=== PATIENT | male | born 1950 | race Caucasian/White ===

== ENCOUNTER 2017-11-23 09:02 | Day surgery (SDC) | payer MEDICARE, BC ==
[~2017-11-23 09:02] MED LIST: Bupivacaine 0.75%/D5W 2 ML Amp ONE; Gentamicin 40 MG/ML 2 ML Vial ONE; Midazolam 1 MG/ML 2 ML SDV ONE; Povidone-Iodine 10% Soln 118.25 ML Bottle ONE; Propofol 200 MG/20 ML SDV ONE; fentaNYL 100 MCG/2 ML SDV ONE
[2017-11-23] MEDS ORDERED: Acetaminophen 500 MG Tab PO ONE (09:15)
[2017-11-23] MEDS ORDERED: Lactated Ringers 1,000 ML IV SCH ×2 (09:15→14:15)
[2017-11-23] MEDS ORDERED: Scopolamine 1.5 MG Transdermal Patch TOP SCH (09:15)
[2017-11-23] MEDS ORDERED: ceFAZolin 2 GM in Premix Bag 1 BAG IV ONE (09:30)
[2017-11-23] MEDS ORDERED: Ketamine 500 MG/5 ML MDV IV SCH (10:45)
[2017-11-23] MEDS ORDERED: Ropivacaine 49.25 ML, Ketorolac 30 MG, EPINEPHrine 0.5 MG, cloNIDine 80 MCG, Sodium Chl... INJECT ONE ×5 (10:45)
[2017-11-23] MEDS ORDERED: Bupivacaine 0.75%/D5W 2 ML Amp ONE (10:57)
[2017-11-23] MEDS: TRANEXAMIC ACID IV SCH ×2 (11:15→14:29)
[2017-11-23] MEDS: SODIUM CHLORIDE 0.9% IV SCH ×2 (11:15→14:29)
[2017-11-23] MEDS ORDERED: fentaNYL 250 MCG/5 ML SDV ONE (11:47)
[2017-11-23] MEDS ORDERED: Dexamethasone 4 MG/ML SDV ONE (12:03)
[2017-11-23] MEDS ORDERED: Ondansetron 4 MG/2 ML SDV ONE (12:03)
[2017-11-23] MEDS ORDERED: Lactated Ringers 1,000 ML ONE (12:24)
[2017-11-23] MEDS ORDERED: Vancomycin 1 GM SDV ONE (12:53)
[2017-11-23] MEDS ORDERED: Morphine 2 MG/ML Syringe IVPUSH PRN (14:04)
[2017-11-23] MEDS ORDERED: Aluminum Hydroxide/Magnesium Hydroxide/Simethicone Susp 30 ML Cup PO PRN (14:04)
[2017-11-23] MEDS ORDERED: traMADol 50 MG Tab PO PRN (14:04)
[2017-11-23] MEDS ORDERED: Sennosides 8.6 MG Tab PO PRN (14:04)
[2017-11-23] MEDS ORDERED: Docusate Sodium 100 MG Cap PO PRN (14:04)
[2017-11-23] MEDS ORDERED: Ondansetron 4 MG/2 ML SDV IVPUSH PRN (14:04)
[2017-11-23] MEDS ORDERED: Ketorolac 30 MG/ML SDV IVPUSH PRN (14:04)
[2017-11-23] MEDS ORDERED: diphenhydrAMINE 50 MG/ML SDV IVPUSH PRN (14:04)
[2017-11-23] MEDS ORDERED: Naloxone 0.4 MG/ML SDV IVPUSH PRN (14:04)
[2017-11-23] MEDS ORDERED: Magnesium Hydroxide 400 MG/5 ML Susp 30 ML Cup PO PRN (14:04)
[2017-11-23] MEDS ORDERED: Zolpidem 5 MG Tab PO PRN (14:04)
[2017-11-23] MEDS ORDERED: Bisacodyl 5 MG Tab PO PRN (14:04)
[2017-11-23] MEDS ORDERED: fentaNYL 100 MCG/2 ML SDV ONE (14:08)
[2017-11-23] MEDS ORDERED: hydrOXYzine HCl 100 MG/2 ML SDV IM ONE (14:30)
--- NOTE | 2017-11-23 14:45 | CR ---
Knee 1V or 2V Lt CLINICAL HISTORY: Postop FINDINGS: Patient is status post total knee arthroplasty. Components appear well seated. There is int erstitial synovial and subcutaneous air. Impression: Status post recent 3 component total knee arthroplasty
[2017-11-23] MEDS ORDERED: fentaNYL 100 MCG/2 ML SDV IVPUSH ONE (14:49)
--- NOTE | 2017-11-23 15:47 | OR ---
DATE OF PROCEDURE: 11/23/2017 PREOPERATIVE DIAGNOSIS: Left knee primary osteoarthritis. POSTOPERATIVE DIAGNOSIS: Left knee primary osteoarthritis. PROCEDURE: Left knee total knee arthroplasty. ANESTHESIA: General endotracheal intubation. FLUIDS: Lactated Ringer's solution. ESTIMATED BLOOD LOSS: 10 mL. COMPLICATIONS: None. SPECIMEN: None. DISCHARGE DISPOSITION: Stable to PACU. INSTRUMENTATION: DePuy femur size 7, tibia size 7, size 7 10-mm polyethylene insert, and 41- mm domed polyethylene patella. INDICATION FOR PROCEDURE: The patient was seen preoperatively in the clinic. He had failed nonoperative treatment. Preoperative imaging confirmed the above-mentioned diagnosis. Risks and benefits of the procedure were explained to the patient and informed consent was obtained. DETAILS OF PROCEDURE: The patient was seen preoperatively in the preoperative holding area, where the operative site was marked. He was brought to the operative suite by Anesthesia staff, where spinal was administered, but did not take; therefore, general anesthesia was administered. A well-padded tourniquet was placed on the left thigh. The left lower extremity was then prepped and draped in a sterile manner. Time-out was called identifying the correct patient, the correct procedure, the correct site, and that antibiotics had been begun within the appropriate period of time. We started this case as a medial unicompartmental arthroplasty, so his right lower extremity was in a stirrup and the left was in a U-brace with a pad. The left lower extremity was exsanguinated. Tourniquet was raised to 300 mmHg and taken down at 113 minutes. I did start off performing a medial arthroplasty, which failed. This was done through a medial parapatellar incision and then a medial parapatellar arthrotomy. We went through the entire procedure, which I am not going to go through at this point in time, but right before we were ready to cement the plateau, just under, the intercondylar notch cracked. Therefore, it was converted to a total. I will detail that procedure in full. The patella was everted. Two free-hand cuts were made on the patella. Three holes were drilled for the 41 patella trial. After the patella trial was inserted, I then reamed the distal femur and then inserted a cutting guide. This was a 9-mm distal cut, but I did set it to 8 because of the prior unicondylar cut and then pinned this in place and then made the cut. I then removed that guide and then used a posterior condylar guide because there was a resection of the posteromedial condyle due to the unicompartmental arthroplasty. I did carefully evaluate the epicondylar axis, pinned this in place, which measured a 7. I used the pins for my 7 chamfer block and made my anterior, posterior, chamfer cuts. After this had been performed, I then focused on my tibial cut. I then used an extramedullary tibial guide from my tibial cut, making this just slightly below the level of my previous medial tibial cut. After that had been performed, I anteriorized the tibia and protected medial and lateral collaterals during the procedure with the Z- retractor and a sharp Hohmann. I then applied my 7 tibial baseplate, then reamed and tamped this, and then placed my femoral trial, followed by tibial insert. I had to recap my tibia because there was not enough space and then I inserted a size 7 10-mm tibial trial. This provided excellent stability throughout range of motion. We then removed all of our components. We then copiously irrigated with saline and then cemented our components in place with the knee in extension, with a size 7 10-mm trial. After the cement had dried, we then removed our tibial trial and then copiously irrigated with saline. I took care of any extra bleeders. No lateral tibial osteophytes or femoral osteophytes were seen posteriorly. I removed any extra cement. I then irrigated again and applied some Betadine into the wound because of the tourniquet time, and then I irrigated again and placed some vancomycin powder, and then inserted my final tibial insert, which was size 7 10-mm. This provided excellent range of motion and stability. We then closed with two #5 Ethibond interrupted sutures at the inferior and superior pole of the patella followed by #1 STRATAFIX, followed by #2 STRATAFIX, followed by skin ashley, and followed by sterile dressing. Then, the patient was allowed to awaken from general anesthesia and taken to the PACU in a stable condition. Abebe Nassar DO /[id number]
[2017-11-23] MEDS: Acetaminophen/oxyCODONE 325-5 MG Tab PO PRN ×3 (16:12→23:50)
[2017-11-23] MEDS: ceFAZolin 2 GM in Sodium Chloride 0.9% 50 ML IV SCH (18:12)
[2017-11-24] MEDS: ceFAZolin 2 GM in Sodium Chloride 0.9% 50 ML IV SCH ×2 (01:08→10:17)
[2017-11-24] MEDS: Acetaminophen/oxyCODONE 325-5 MG Tab PO PRN ×2 (04:20→07:59)
[2017-11-24 08:05] VITALS: BP 125/92
[2017-11-24] MEDS ORDERED: Sodium Chloride 0.9% 10 ML Syringe FLUSH SCH (09:00)
[2017-11-24] MEDS ORDERED: Aspirin 325 MG Tab.EC PO SCH (09:00)
--- NOTE | 2017-11-24 09:02 | PCM.DCSUM1 ---
Discharge Summary - Hospital Course Diagnosis: Stroke: No - Discharge Data Discharge Date: 11/24/17 Discharge Disposition: Home, Self-Care 01 Condition: Good - Patient Summary/Data Operative Procedure(s) Performed: r tka Complications: none Consults: Consultations 11/23/17 14:04 OT Evaluation and Treatment [CONS] Routine Please Evaluate and Treat. OT Reason for Consult: Strengthening This query below is only for informational purposes and is not editable. PT Evaluation and Treatment [CONS] Routine Please Evaluate and Treat. PT Reason for Consult: Strengthening This query below is only for informational purposes and is not editable. Respiratory Care Assess and Treatment [CONS] Routine Comment: Physician Instructions: Post-op Pneumonia Prevention - Patient Instructions Diet: Usual Diet as Tolerated Activity: Apply Ice, As Tolerated, Full Weight Bearing, No Strenuous Activities Driving: Do Not Drive Showering/Bathing: May Shower Wound/Incision Care: Keep Operative Site/Wound Site Clean and Dry Wound/Incision, Other: change aquacell , then daily dressing changes Notify Provider of: Fever, Increased Pain, Swelling and Redness, Drainage - Discharge Plan *PRESCRIPTION DRUG MONITORING PROGRAM REVIEWED*: No *COPY OF PRESCRIPTION DRUG MONITORING REPORT IN PATIENT JUSTICE: No Prescriptions/Med Rec: Acetaminophen/oxyCODONE [Percocet 325-5 MG] 1 tab PO Q6HR #90 tablet Home Medications: Home Meds Aspirin 325 mg PO DAILY 06/22/16 [History] Fexofenadine [Evelyn] 180 mg PO DAILY 06/22/16 [History] Metoprolol Succinate [Toprol XL] 50 mg PO DAILY 06/22/16 [History] atorvaSTATin [Lipitor] 40 mg PO DAILY 06/22/16 [History] Vitamin B Complex [B Complex] 1 each PO DAILY 06/25/16 [History] Acetaminophen/oxyCODONE [Percocet 325-5 MG] 1 tab PO Q6HR #90 tablet 11/24/17 [ Rx] Patient Handouts: Total Knee Replacement, Care After, [id number] Referrals: Abebe Nassar DO [Physician] - - General Info Date of Service: 11/24/17 Functional Status: Reports: Pain Controlled - Review of Systems General: Reports: No Symptoms HEENT: Reports: No Symptoms Pulmonary: Reports: No Symptoms Cardiovascular: Reports: No Symptoms Gastrointestinal: Reports: No Symptoms Genitourinary: Reports: No Symptoms Musculoskeletal: Reports: Joint Pain Skin: Reports: No Symptoms Neurological: Reports: No Symptoms Psychiatric: Reports: No Symptoms - Patient Data Vitals - Most Recent: Last Vital Signs Temp 97.9 F 11/24/17 08:04 Pulse 82 11/24/17 08:04 Resp 16 11/24/17 08:04 BP 125/92 H 11/24/17 08:04 Pulse Ox 93 L 11/24/17 08:04 Weight - Most Recent: 184 lb I&O - Last 24 hours: Intake & Output 11/23/17 11/24/17 11/24/17 22:59 06:59 14:59 Intake Total 815 1873 Output Total 800 1450 Balance 15 423 Lab Results - Last 24 hrs: Laboratory Results - last 24 hr 11/23/17 11/24/17 11/24/17 Range/Units 09:20 05:00 05:00 WBC 12.6 H (4.5-11.0) K/uL RBC 4.24 L (4.30-5.90) M/uL Hgb 12.8 (12.0-15.0) g/dL Hct 38.9 L (40.0-54.0) % MCV 92 (80-98) fL MCH 30 (27-31) pg MCHC 33 (32-36) % Plt Count 165 (150-400) K/uL Neut % (Auto) 81 H (36-66) % Lymph % (Auto) 9 L (24-44) % [place] % (Auto) 11 H (2-6) % Eos % (Auto) 0 L (2-4) % Baso % (Auto) 0 (0-1) % Sodium 137 L (140-148) mmol/L Potassium 4.1 (3.6-5.2) mmol/L Chloride 106 (100-108) mmol/L Carbon Dioxide 26 (21-32) mmol/L Anion Gap 9.1 (5.0-14.0) mmol/L BUN 17 (7-18) mg/dL Creatinine 1.3 (0.8-1.3) mg/dL Est Cr Clr Drug Dosing 55.90 mL/min Estimated GFR (MDRD) 55 L (>60) Glucose 146 H (74-106) mg/dL Calcium 8.1 L (8.5-10.1) mg/dL Total Bilirubin 0.4 (0.2-1.0) mg/dL ALT 34 (12-78) U/L Alkaline Phosphatase 81 (46-116) U/L Total Protein 5.4 L (6.4-8.2) g/dL Albumin 2.7 L (3.4-5.0) g/dL Globulin 2.7 (2.3-3.5) g/dL Albumin/Globulin Ratio 1.0 L (1.2-2.2) Blood Type A POSITIVE Gel Antibody Screen Negative Med Orders - Current: Current Medications Al Hydroxide/Mg Hydroxide (Mag-Al Plus) 30 ml PO Q4H PRN PRN Reason: Constipation Aspirin (Ecotrin) 325 mg PO DAILY [facility] Last Admin: 11/24/17 07:59 Dose: 325 mg Bisacodyl (Dulcolax) 10 mg PO DAILY PRN PRN Reason: Constipation Diphenhydramine HCl (Benadryl) 25 mg IVPUSH Q4H PRN PRN Reason: Itching Docusate Sodium (Colace) 100 mg PO BID PRN PRN Reason: Constipation Ketamine HCl 100 mg/ Sodium (Chloride) 100 mls @ 21 mls/hr IV ASDIRECTED [facility] Cefazolin Sodium 2 gm/ Sodium (Chloride) 50 mls @ 100 mls/hr IV Q8H [facility] Stop: 11/24/17 10:29 Last Admin: 11/24/17 01:08 Dose: 100 mls/hr Lactated Ringer's (Ringers, Lactated) 1,000 mls @ 100 mls/hr IV ASDIRECTED [facility] Last Admin: 11/24/17 02:30 Dose: 100 mls/hr Ketorolac Tromethamine (Toradol) 30 mg IVPUSH Q8H PRN PRN Reason: Pain Magnesium Hydroxide (Milk Of Magnesia) 30 ml PO BID PRN PRN Reason: Constipation Morphine Sulfate (Morphine) 2 mg IVPUSH Q2H PRN PRN Reason: Pain Naloxone HCl (Narcan) 0.1 mg IVPUSH ASDIRECTED PRN PRN Reason: Oversedation Ondansetron HCl (Zofran) 8 mg IVPUSH Q4H PRN PRN Reason: Nausea/Vomiting Oxycodone/Acetaminophen (Percocet 325-5 Mg) 2 tab PO Q4H PRN PRN Reason: Pain Last Admin: 11/24/17 07:59 Dose: 2 tab Scopolamine (Transderm-Scop) 1.5 mg TOP Q72H [facility] Stop: 11/25/17 09:16 Last Admin: 11/23/17 09:25 Dose: 1.5 mg Senna (Senna) 8.6 mg PO BID PRN PRN Reason: Constipation Sodium Chloride (Saline Flush) 10 ml FLUSH DAILY [facility] Tramadol HCl (Ultram) 100 mg PO Q6H PRN PRN Reason: Pain Zolpidem Tartrate (Ambien) 5 mg PO BEDTIME PRN PRN Reason: Sleep Discontinued Medications Acetaminophen (Tylenol Extra Strength) 1,000 mg PO ONETIME ONE Stop: 11/23/17 09:16 Last Admin: 11/23/17 09:23 Dose: 1,000 mg Bupivacaine HCl/Dextrose (Marcaine 0.75% Spinal) Confirm Administered Dose 2 ml .ROUTE .STK-MED ONE Stop: 11/23/17 08:22 Bupivacaine HCl/Dextrose (Marcaine 0.75% Spinal) Confirm Administered Dose 2 ml .ROUTE .STK-MED ONE Stop: 11/23/17 10:58 Ropivacaine 49.25 ml/Ketorolac Tromethamine 30 mg/Epinephrine HCl 0.5 mg/ Clonidine HCl 80 mcg/ Sodium Chloride 48.45 ml 0 ml INJECT ONETIME ONE Stop: 11/23/17 10:46 Last Admin: 11/23/17 12:15 Dose: 100 ml Dexamethasone (Dexamethasone) Confirm Administered Dose 4 mg .ROUTE .STK-MED ONE Stop: 11/23/17 12:04 Fentanyl (Sublimaze) Confirm Administered Dose 100 mcg .ROUTE .STK-MED ONE Stop: 11/23/17 08:10 Fentanyl (Sublimaze) Confirm Administered Dose 250 mcg .ROUTE .STK-MED ONE Stop: 11/23/17 11:48 Fentanyl (Sublimaze) Confirm Administered Dose 100 mcg .ROUTE .STK-MED ONE Stop: 11/23/17 14:09 Fentanyl (Sublimaze) 100 mcg IVPUSH ONETIME ONE Stop: 11/23/17 14:50 Last Admin: 11/23/17 14:53 Dose: 100 mcg Gentamicin Sulfate (Gentamicin) Confirm Administered Dose 240 mg .ROUTE .STK- MED ONE Stop: 11/23/17 07:04 Last Admin: 11/23/17 11:56 Dose: 240 mg Hydroxyzine HCl (Vistaril) 75 mg IM ONETIME ONE Stop: 11/23/17 14:31 Last Admin: 11/23/17 14:37 Dose: 75 mg Cefazolin Sodium/Dextrose 2 gm (/ Premix) 50 mls @ 100 mls/hr IV ONETIME ONE Stop: 11/23/17 09:59 Last Admin: 11/23/17 11:15 Dose: 100 mls/hr Lactated Ringer's (Ringers, Lactated) 1,000 mls @ 100 mls/hr IV ASDIRECTED [facility] Last Admin: 11/23/17 09:58 Dose: 100 mls/hr Tranexamic Acid 940 mg/ Sodium (Chloride) 59.4 mls @ 237.6 mls/hr IV Q3H [facility] Stop: 11/23/17 13:59 Last Admin: 11/23/17 14:29 Dose: 237.6 mls/hr Lactated Ringer's (Ringers, Lactated) Confirm Administered Dose 1,000 mls @ as directed .ROUTE .STK-MED ONE Stop: 11/23/17 12:25 Ketamine HCl (Ketalar) 35 mg IV ASDIRECTED [facility] Midazolam HCl (Versed 1 Mg/Ml) Confirm Administered Dose 2 mg .ROUTE .STK-MED ONE Stop: 11/23/17 08:10 Ondansetron HCl (Zofran) Confirm Administered Dose 4 mg .ROUTE .STK-MED ONE Stop: 11/23/17 12:04 Povidone Iodine (Betadine 10% Soln) Confirm Administered Dose 1 ml .ROUTE .STK- MED ONE Stop: 11/23/17 07:04 Last Admin: 11/23/17 11:57 Dose: 1 ml Propofol (Diprivan 20 Ml) Confirm Administered Dose 200 mg .ROUTE .STK-MED ONE Stop: 11/23/17 08:11 Vancomycin HCl (Vancomycin) Confirm Administered Dose 1 gm .ROUTE .STK-MED ONE Stop: 11/23/17 12:54 Last Admin: 11/23/17 13:45 Dose: 1 gm - Exam General: Reports: Alert, Oriented HEENT: Reports: Pupils Equal, Pupils Reactive, Mucous Membr. Moist/[place] Neck: Reports: Supple, Trachea Midline Lungs: Reports: Normal Respiratory Effort Cardiovascular: Reports: Regular Rate, Regular Rhythm Extremities: Joint Swelling, Limited Range of Motion Skin: Reports: Warm, Dry, Intact Wound/Incisions: Reports: Healing Well, Dressing Dry and Intact, No Drainage Neurological: Reports: No New Focal Deficit Psy/Mental Status: Reports: Alert, Normal Affect, Normal Mood Discharge Operative/Procedures - Procedures Performed Operations: r tka
== END 2017-11-24 10:57 | disposition home or self-care (01) ==
LOC: JP.SDS 09:02 → JP.MS 14:04 → JP.SDS 11-24 10:57
PROVIDERS: ATTEND Orthopaedic Surgery
DX: M17.12 Unilateral primary osteoarthritis, left knee (principal); I10 Essential (primary) hypertension; I25.10 Atherosclerotic heart disease of native coronary artery without angina pectoris; E78.5 Hyperlipidemia, unspecified; Z79.82 Long term (current) use of aspirin; Z79.899 Other long term (current) drug therapy
CPT/HCPCS: 27447; 36415; 73560; 80053; 85025; 86850; 86900; 86901; 94762; 97162; 97165; A9270; J0171; J0690; J0735; J1100; J1580; J1885; J2250; J2405; J2704; J2795; J3010; J3370; J3410; J7030; J7050; J7120

== ENCOUNTER 2017-11-25 11:16 | Observation (INO) | payer BC, MEDICARE ==
[2017-11-25] MEDS ORDERED: Polyethylene Glycol 3350 Powder 17 GM Packet PO PRN (11:44)
[2017-11-25] MEDS ORDERED: Magnesium Hydroxide 400 MG/5 ML Susp 30 ML Cup PO PRN (11:44)
[2017-11-25] MEDS ORDERED: Ondansetron 4 MG Tab.DIS PO PRN (11:44)
--- NOTE | 2017-11-25 11:53 | PCM.HP ---
H&P History of Present Illness - General Date of Service: 11/25/17 Admit Problem/Dx: Admission Diagnosis/Problem Admission Diagnosis/Problem Edema of left lower extremity Source of Information: Patient, Family, Old Records, Provider, RN Notes Reviewed History Limitations: Reports: No Limitations - History of Present Illness Initial Comments - Free Text/Narative: Mr. Mcfarland is a 66-year-old gentleman who is admitted as a direct admission from physical therapy with increased swelling and pain in his left knee. He underwent total left knee arthroplasty 2 days [address] performed by Dr[address] Salvador Nassar. He did very well first 24 hours after surgery and was discharged home yesterday. As the day progressed he had increased swelling and pain in the knee and leg. He presented this morning for physical therapy but because of swelling and pain was unable to participate. He does not feel that he would be safe to function at home at this point and will be admitted to observation status. There have been no fevers, chills, or sweats. He does have a past history of deep vein thrombosis associated with previous surgery of his left ankle. - Related Data Allergies/Adverse Reactions: Allergies Allergy/AdvReac Type Severity Reaction Status Date / Time No Known Allergies Allergy Verified 06/25/16 07:15 Home Medications: Home Meds Aspirin 325 mg PO DAILY 06/22/16 [History] Fexofenadine [Evelyn] 180 mg PO DAILY 06/22/16 [History] Metoprolol Succinate [Toprol XL] 50 mg PO DAILY 06/22/16 [History] atorvaSTATin [Lipitor] 40 mg PO DAILY 06/22/16 [History] Vitamin B Complex [B Complex] 1 each PO DAILY 06/25/16 [History] Acetaminophen/oxyCODONE [Percocet 325-5 MG] 1 tab PO Q6HR #90 tablet 11/24/17 [ Rx] Past Medical History HEENT History: Reports: Impaired Vision Cardiovascular History: Reports: High Cholesterol, Hypertension, [place] Gastrointestinal History: Reports: Colon Polyp Musculoskeletal History: Reports: Other (See Below) Other Musculoskeletal History: right elbow pain. left knee pain - Infectious Disease History Infectious Disease History: Reports: Chicken Pox, Measles, Mumps - Past Surgical History HEENT Surgical History: Reports: None Cardiovascular Surgical History: Reports: Coronary Artery Stent GI Surgical History: Reports: Colonoscopy, Hernia, Inguinal Musculoskeletal Surgical History: Reports: Knee Replacement, Other (See Below) Other Musculoskeletal Surgeries/Procedures:: arthroscope right elbow Social & Family History - Family History Family Medical History: Noncontributory - Caffeine Use Caffeine Use: Reports: None H&P Review of Systems - Review of Systems: Review Of Systems: See Below General: Denies: Fever, Chills, Weakness, Diaphoresis, Decreased Appetite HEENT: Reports: No Symptoms Pulmonary: Reports: No Symptoms Cardiovascular: Reports: No Symptoms Gastrointestinal: Reports: No Symptoms Genitourinary: Reports: No Symptoms Musculoskeletal: Reports: Other (Pain and swelling left knee and leg) Skin: Reports: No Symptoms Psychiatric: Reports: No Symptoms Neurological: Reports: No Symptoms Hematologic/Lymphatic: Reports: No Symptoms Immunologic: Reports: No Symptoms Exam - Exam Exam: See Below - Vital Signs Vital Signs: Last Vital Signs Temp 99.1 F 11/25/17 11:27 Pulse 77 11/25/17 11:27 Resp 18 11/25/17 11:27 BP 149/79 H 11/25/17 11:27 Pulse Ox 96 11/25/17 11:27 - Exam Quality Assessment: DVT Prophylaxis General: Alert, Oriented, Cooperative, Moderate Distress HEENT: Conjunctiva Clear, Hearing Intact, Mucosa Moist & [place], Normal Nasal Septum, Posterior Pharynx Clear, Pupils Equal Neck: Supple, Trachea Midline, +2 Carotid Pulse wo Bruit Lungs: Clear to Auscultation, Normal Respiratory Effort Cardiovascular: Regular Rate, Regular Rhythm, Normal S1, Normal S2. No: Systolic Murmur, Diastolic Murmur GI/Abdominal Exam: Soft, Non-Tender, No Organomegaly, No Distention Extremities: Leg Pain, Increased Warmth, Other (Pain and swelling left leg, incision is intact with no evidence of active infection at the present time) Skin: Warm, Dry Neurological: Cranial Nerves Intact, Strength Equal Bilateral, Normal Speech, Normal Tone, Sensation Intact, Focal Deficit Neuro Extensive - Mental Status: Alert, Oriented x3, Normal Mood/Affect, Normal Cognition, Memory Intact *Q Meaningful Use (ADM) - VTE *Q VTE Pharmacological Contraindications *Q: Active Hemorrhage - VTE Risk Assess *Q Each Risk Factor Represents 1 Point: None Total Score 1 Point Risk Factors: 0 Each Risk Factor Represents 2 Points: Age 60 - 74 Years Total Score 2 Point Risk Factors: 2 Each Risk Factor Represents 3 Points: History of DVT/PE Total Score 3 Point Risk Factors: 3 Each Risk Factor Represents 5 Points: Elective Major Lower Extremity Arthroplasty Total Score 5 Point Risk Factors: 5 Venous Thromboembolism Risk Factor Score *Q: 10 Problem List Initiated/Reviewed/Updated: Yes Orders Last 24hrs: Active Orders 24 hr Category Date Time Status Patient Status [ADT] Routine ADT 11/25/17 11:44 Ordered Rayo Bandage [RC] CONTINUOUS Care 11/25/17 11:25 Active Ambulate [RC] QID Care 11/25/17 11:44 Ordered Communication Order [RC] ASDIRECTED Care 11/25/17 11:27 Active Elevate Extremity [RC] CONTINUOUS Care 11/25/17 11:25 Active Height and Weight [RC] DAILY Care 11/25/17 11:44 Ordered Intake and Output [RC] QSHIFT Care 11/25/17 11:44 Ordered Notify Provider Vital Signs [RC] ASDIRECTED Care 11/25/17 11:44 Ordered Oxygen Therapy [RC] PRN Care 11/25/17 11:44 Ordered Up With Assistance [RC] ASDIRECTED Care 11/25/17 11:44 Ordered Up to Chair [RC] QID Care 11/25/17 11:44 Ordered VTE/DVT Education [RC] Per Unit Routine Care 11/25/17 11:44 Ordered Vital Signs [RC] Q4H Care 11/25/17 11:44 Ordered Regular Diet [DIET] Diet 11/25/17 Lunch Ordered Extremity Non Vascular Lt [US] Stat Exams 11/25/17 11:44 Ordered VL Duplex Lwr Ext Veins Ltd Lt [US] Stat Exams 11/25/17 11:44 Ordered CBC WITH AUTO DIFF [HEME] Stat Lab 11/25/17 11:44 Ordered COMPREHENSIVE METABOLIC PN,CMP [CHEM] Stat Lab 11/25/17 11:44 Ordered Acetaminophen [Tylenol] Med 11/25/17 11:44 Ordered 650 mg PO Q4H PRN Docusate Sodium/Sennosides [Senna Plus] Med 11/25/17 11:44 Ordered 1 tab PO BID PRN Fexofenadine [Evelyn] Med 11/26/17 09:00 Ordered 180 mg PO DAILY Magnesium Hydroxide [Milk of Magnesia] Med 11/25/17 11:44 Ordered 30 ml PO Q12H PRN Metoprolol Succinate [Toprol XL] Med 11/26/17 09:00 Ordered 50 mg PO DAILY Ondansetron [Zofran ODT] Med 11/25/17 11:44 Ordered 4 mg PO Q6H PRN Polyethylene Glycol 3350 [MiraLAX] Med 11/25/17 11:44 Ordered 17 gm PO DAILY PRN atorvaSTATin [Lipitor] Med 11/26/17 09:00 Ordered 40 mg PO DAILY oxyCODONE Med 11/25/17 11:44 Ordered 5 - 10 mg PO Q4H PRN Ice Therapy [OM.PC] Routine Oth 11/25/17 11:27 Ordered VTE Pharmacological Contraindications [AST] Per Unit Oth 11/25/17 11:44 Ordered Routine Resuscitation Status Routine Resus Stat 11/25/17 11:38 Ordered Medication Orders Acetaminophen (Tylenol) 650 mg PO Q4H PRN PRN Reason: Pain (Mild 1-3)/fever Non-Formulary Medication (Atorvastatin [Lipitor]) 40 mg PO DAILY [facility] Non-Formulary Medication (Fexofenadine [Evelyn]) 180 mg PO DAILY [facility] Senna/Docusate Sodium (Senna Plus) 1 tab PO BID PRN PRN Reason: Constipation Assessment/Plan Comment:: ASSESSMENT AND PLAN PAIN AND SWELLING LEFT KNEE-history of total left knee arthroplasty done [address] Salvador Nassar. Discharged home yesterday but over the last 24 hours his developed significant pain and swelling about the left knee. Previous history of deep vein thrombosis involving the left leg. No obvious evidence of infection noted this time, possibility with increased pain and swelling is secondary to bleeding. -Laboratory tests pending -Compression, ice, and elevation, left leg -Pain medication as needed -Physical therapy in a.m. -Ultrasound left knee to look for evidence of hematoma -Venous Doppler studies left leg to evaluate for deep vein thrombosis CORONARY ARTERY DISEASE-currently asymptomatic -Continue outpatient management MAINTENANCE ISSUES -DVT prophylaxis;Hold on anticoagulation, possible hematoma left knee -GI prophylaxis;Not indicated -Beckett catheter;Not indicated -Nutrition;Regular diet -Nicotine dependence;Not required CODE STATUS-FULL CODE ADMISSION STATUS-this patient will be admitted to observation status, expect no more than a one night hospital stay for evaluation and management of problems as outlined above. DISPOSITION-anticipate discharge to home after the hospital stay. PRIMARY CARE PROVIDER-Dr. Batista
[2017-11-25] MEDS: oxyCODONE 5 MG Tab PO PRN ×3 (12:21→22:20)
--- NOTE | 2017-11-25 13:11 | US ---
VL Duplex Lwr Ext Veins Ltd Lt INDICATION: New swelling left leg FINDINGS: Ultrasound examination of the lower extremity using Doppler and compressive technique demon strates that the common femoral, femoral, and popliteal veins are patent, and negative for thrombus. The calf veins were segmentally visualized and are negative where seen. IMPRESSION: Negative for deep venous thrombosis.
[2017-11-25] MEDS: Acetaminophen 325 MG Tab PO PRN (17:22)
[2017-11-26] MEDS: oxyCODONE 5 MG Tab PO PRN ×2 (02:56→07:31)
[2017-11-26] MEDS: Loratadine 10 MG Tab PO SCH (08:47)
[2017-11-26] MEDS: Metoprolol Succinate 50 MG Tab.ER PO SCH (08:48)
[2017-11-26] MEDS: atorvaSTATin 20 MG Tab PO SCH (08:48)
[2017-11-26] MEDS ORDERED: Non-Formulary Medication 1 Each (Fexofenadine [Allegra] 180 MG) PO SCH (09:00)
[2017-11-26] MEDS ORDERED: Non-Formulary Medication 1 Each (Atorvastatin [Lipitor] 40 MG) PO SCH (09:00)
--- NOTE | 2017-11-26 11:57 | PCM.PN ---
- General Info Date of Service: 11/26/17 Subjective Update: Mr. Mcfarland has been stable since admission, less swelling and stiffness of the left knee. He did have mild temperature elevation but this was likely secondary to atelectasis, no current indication of infection in the prosthetic joint. Functional Status: Reports: Tolerating Diet, Ambulating, Urinating - Review of Systems General: Denies: Fever, Weakness, Chills Pulmonary: Reports: No Symptoms Cardiovascular: Reports: No Symptoms Gastrointestinal: Reports: No Symptoms Musculoskeletal: Reports: Joint Pain - Patient Data Vitals - Most Recent: Last Vital Signs Temp 98.7 F 11/26/17 10:27 Pulse 73 11/26/17 10:27 Resp 18 11/26/17 10:27 BP 133/83 11/26/17 10:27 Pulse Ox 92 L 11/26/17 10:27 Weight - Most Recent: 191 lb 12.8 oz I&O - Last 24 Hours: Intake & Output 11/25/17 11/26/17 11/26/17 22:59 06:59 14:59 Intake Total 720 Balance 720 Lab Results Last 24 Hours: Laboratory Results - last 24 hr 11/25/17 11/25/17 Range/Units 11:55 11:55 WBC 10.6 (4.5-11.0) K/uL RBC 4.21 L (4.30-5.90) M/uL Hgb 12.8 (12.0-15.0) g/dL Hct 38.6 L (40.0-54.0) % MCV 92 (80-98) fL MCH 30 (27-31) pg MCHC 33 (32-36) % Plt Count 160 (150-400) K/uL Neut % (Auto) 75 H (36-66) % Lymph % (Auto) 10 L (24-44) % [place] % (Auto) 14 H (2-6) % Eos % (Auto) 1 L (2-4) % Baso % (Auto) 0 (0-1) % Sodium 139 L (140-148) mmol/L Potassium 4.0 (3.6-5.2) mmol/L Chloride 101 (100-108) mmol/L Carbon Dioxide 30 (21-32) mmol/L Anion Gap 12.0 (5.0-14.0) mmol/L BUN 14 (7-18) mg/dL Creatinine 1.1 (0.8-1.3) mg/dL Est Cr Clr Drug Dosing 66.06 mL/min Estimated GFR (MDRD) > 60 (>60) Glucose 110 H (74-106) mg/dL Calcium 8.5 (8.5-10.1) mg/dL Total Bilirubin 0.7 D (0.2-1.0) mg/dL AST 34 (15-37) U/L ALT 30 (12-78) U/L Alkaline Phosphatase 83 (46-116) U/L Total Protein 6.1 L (6.4-8.2) g/dL Albumin 2.9 L (3.4-5.0) g/dL Globulin 3.2 (2.3-3.5) g/dL Albumin/Globulin Ratio 0.9 L (1.2-2.2) Med Orders - Current: Current Medications Acetaminophen (Tylenol) 650 mg PO Q4H PRN PRN Reason: Pain (Mild 1-3)/fever Last Admin: 11/25/17 17:22 Dose: 650 mg Atorvastatin Calcium (Lipitor) 40 mg PO DAILY [facility] Last Admin: 11/26/17 08:48 Dose: Not Given Loratadine (Claritin) 10 mg PO DAILY [facility] Last Admin: 11/26/17 08:47 Dose: Not Given Magnesium Hydroxide (Milk Of Magnesia) 30 ml PO Q12H PRN PRN Reason: Constipation Last Admin: 11/26/17 04:46 Dose: 30 ml Metoprolol Succinate (Toprol Xl) 50 mg PO DAILY [facility] Last Admin: 11/26/17 08:48 Dose: Not Given Ondansetron HCl (Zofran Odt) 4 mg PO Q6H PRN PRN Reason: Nausea able to take PO Oxycodone HCl (Oxycodone) 5 - 10 mg PO Q4H PRN PRN Reason: Pain (moderate 4-6) Last Admin: 11/26/17 07:31 Dose: 10 mg Polyethylene Glycol (Miralax) 17 gm PO DAILY PRN PRN Reason: Constipation Last Admin: 11/25/17 12:27 Dose: 17 gm Senna/Docusate Sodium (Senna Plus) 1 tab PO BID PRN PRN Reason: Constipation Last Admin: 11/26/17 04:46 Dose: 1 tab - Exam General: Alert, Oriented, Cooperative, Mild Distress Lungs: Clear to Auscultation, Normal Respiratory Effort Cardiovascular: Regular Rate, Regular Rhythm GI/Abdominal Exam: Soft, Non-Tender, No Organomegaly, No Distention Extremities: Joint Swelling Skin: Warm, Dry - Problem List Review Problem List Initiated/Reviewed/Updated: Yes - My Orders Last 24 Hours: My Active Orders 11/25/17 11:38 Resuscitation Status Routine 11/25/17 11:44 Patient Status [ADT] Routine Ambulate [RC] QID Height and Weight [RC] DAILY Intake and Output [RC] QSHIFT Notify Provider Vital Signs [RC] ASDIRECTED Oxygen Therapy [RC] PRN Up With Assistance [RC] ASDIRECTED Up to Chair [RC] QID VTE/DVT Education [RC] Per Unit Routine Vital Signs [RC] Q4H Acetaminophen [Tylenol] 650 mg PO Q4H PRN Docusate Sodium/Sennosides [Senna Plus] 1 tab PO BID PRN Magnesium Hydroxide [Milk of Magnesia] 30 ml PO Q12H PRN Ondansetron [Zofran ODT] 4 mg PO Q6H PRN Polyethylene Glycol 3350 [MiraLAX] 17 gm PO DAILY PRN oxyCODONE 5 - 10 mg PO Q4H PRN VTE Pharmacological Contraindications [AST] Per Unit Routine 11/25/17 Lunch Regular Diet [DIET] 11/26/17 09:00 Loratadine [Claritin] 10 mg PO DAILY Metoprolol Succinate [Toprol XL] 50 mg PO DAILY atorvaSTATin [Lipitor] 40 mg PO DAILY 11/26/17 11:23 Consult to Physical Therapy [PT Evaluation and Treatment] [CONS] Routine - Plan Plan:: ASSESSMENT AND PLAN PAIN AND SWELLING LEFT KNEE-history of total left knee arthroplasty done [address] Salvador Nassar. Stable since admission with only slight temperature elevation likely secondary to atelectasis. Ultrasound obtained yesterday showed no evidence of hematoma or deep vein thrombosis. -Compression, ice, and elevation, left leg -Pain medication as needed -Physical therapy CORONARY ARTERY DISEASE-currently asymptomatic -Continue outpatient management MAINTENANCE ISSUES -DVT prophylaxis;Hold on anticoagulation, possible hematoma left knee -GI prophylaxis;Not indicated -Beckett catheter;Not indicated -Nutrition;Regular diet -Nicotine dependence;Not required CODE STATUS-FULL CODE ADMISSION STATUS-this patient will be admitted to observation status, expect no more than a one night hospital stay for evaluation and management of problems as outlined above. DISPOSITION-anticipate discharge to home tomorrow PRIMARY CARE PROVIDER-Dr. Batista
[2017-11-26] MEDS ORDERED: Bisacodyl 10 MG Supp RECTAL PRN (17:37)
[2017-11-26] MEDS: Acetaminophen 325 MG Tab PO PRN (19:25)
[2017-11-27] MEDS: Acetaminophen 325 MG Tab PO PRN ×2 (01:24→07:32)
[2017-11-27 06:46] VITALS: BP 146/77
[2017-11-27] MEDS: Loratadine 10 MG Tab PO SCH (10:22)
[2017-11-27] MEDS: Metoprolol Succinate 50 MG Tab.ER PO SCH (10:23)
[2017-11-27] MEDS: atorvaSTATin 20 MG Tab PO SCH (10:23)
--- NOTE | 2017-11-27 10:23 | PCM.DCSUM1 ---
Discharge Summary - Hospital Course Brief History: Mr. Mcfarland is a 66-year-old gentleman who was admitted to observation status for further evaluation and management of swelling and pain in his left knee following recent total left knee arthroplasty. - Discharge Data Discharge Date: 11/27/17 Discharge Disposition: Home, Self-Care 01 Condition: Fair - Discharge Diagnosis/Problem(s) (1) Status post left knee surgery SNOMED Code(s): 654740004 ICD Code: Z98.890 - OTHER SPECIFIED POSTPROCEDURAL STATES Status: Acute Current Visit: No Problem Details: Particial replacement (2) CAD (coronary artery disease) SNOMED Code(s): 63437984 ICD Code: I25.10 - ATHSCL HEART DISEASE OF [place] CORONARY ARTERY W/O ANG PCTRS Status: Chronic Current Visit: No - Patient Summary/Data Consults: Consultations 11/26/17 11:23 Consult to Physical Therapy [PT Evaluation and Treatment] [CONS] Routine Please Evaluate and Treat. PT Reason for Consult: Status post left total knee arthroplasty This query below is only for informational purposes and is not editable. Admission Diagnosis/Problem: Edema of left lower extremity Hospital Course: Mr. Mcfarland is a 66-year-old gentleman who was admitted as a direct admission from physical therapy with increased swelling and pain in his left knee. He underwent total left knee arthroplasty 2 days prior to admission, performed by Dr. Salvador Nassar. He did very well first 24 hours after surgery and was discharged home on the day prior to admission. As the day progressed he had increased swelling and pain in the knee and leg. He presented this morning for physical therapy but because of swelling and pain was unable to participate. He does not feel that he would be safe to function at home at this point and will be admitted to observation status. There have been no fevers, chills, or sweats. He does have a past history of deep vein thrombosis associated with previous surgery of his left ankle. On admission the leg was kept elevated with regular ice and compression wrapping. Ultrasound was obtained which showed no evidence of significant fluid collection or hematoma. There was no evidence of deep vein thrombosis noted in the left leg with ultrasound. He was continued on pain medication and was seen by physical therapy on the morning after admission. The time of discharge he was walking with use of crutches and there was significant improvement in the swelling about the left knee. On the day of discharge the incision was intact with no obvious drainage or evidence of underlying infection. Activity will be as tolerated and he will continue outpatient physical therapy. Follow-up appointment will be scheduled for tomorrow with Dr. Salvador Nassar for orthopedic evaluation. He will return immediately if he notes any increased swelling or drainage from the knee. - Patient Instructions Diet: Usual Diet as Tolerated Activity: As Tolerated Other/Special Instructions: Continue outpatient physical therapy as previously scheduled. See Dr. Salvador Nassar tomorrow for orthopedic follow-up of total left knee arthroplasty. Keep the leg elevated while sitting or lying down, ice frequently, compression wraps as tolerated. - Discharge Plan *PRESCRIPTION DRUG MONITORING PROGRAM REVIEWED*: Not Applicable *COPY OF PRESCRIPTION DRUG MONITORING REPORT IN PATIENT JUSTICE: Not Applicable Home Medications: Home Meds Aspirin 325 mg PO DAILY 06/22/16 [History] Fexofenadine [Evelyn] 180 mg PO DAILY 06/22/16 [History] Metoprolol Succinate [Toprol XL] 50 mg PO DAILY 06/22/16 [History] atorvaSTATin [Lipitor] 40 mg PO DAILY 06/22/16 [History] Vitamin B Complex [B Complex] 1 each PO DAILY 06/25/16 [History] Acetaminophen/oxyCODONE [Percocet 325-5 MG] 1 tab PO Q6HR #90 tablet 11/24/17 [ Rx] - Discharge Summary/Plan Comment DC Time >30 min.: No - Patient Data Vitals - Most Recent: Last Vital Signs Temp 97.8 F 11/27/17 06:44 Pulse 75 11/27/17 06:44 Resp 18 11/27/17 06:44 BP 146/77 H 11/27/17 06:44 Pulse Ox 93 L 11/27/17 06:44 Weight - Most Recent: 189 lb 9.6 oz I&O - Last 24 hours: Intake & Output 11/26/17 11/27/17 11/27/17 22:59 06:59 14:59 Intake Total 400 Balance 400 Med Orders - Current: Current Medications Acetaminophen (Tylenol) 650 mg PO Q4H PRN PRN Reason: Pain (Mild 1-3)/fever Last Admin: 11/27/17 07:32 Dose: 650 mg Atorvastatin Calcium (Lipitor) 40 mg PO DAILY [facility] Last Admin: 11/26/17 08:48 Dose: Not Given Bisacodyl (Dulcolax) 10 mg RECTAL BID PRN PRN Reason: Constipation Last Admin: 11/26/17 18:42 Dose: 10 mg Loratadine (Claritin) 10 mg PO DAILY [facility] Last Admin: 11/26/17 08:47 Dose: Not Given Magnesium Hydroxide (Milk Of Magnesia) 30 ml PO Q12H PRN PRN Reason: Constipation Last Admin: 11/26/17 04:46 Dose: 30 ml Metoprolol Succinate (Toprol Xl) 50 mg PO DAILY [facility] Last Admin: 11/26/17 08:48 Dose: Not Given Ondansetron HCl (Zofran Odt) 4 mg PO Q6H PRN PRN Reason: Nausea able to take PO Oxycodone HCl (Oxycodone) 5 - 10 mg PO Q4H PRN PRN Reason: Pain (moderate 4-6) Last Admin: 11/26/17 07:31 Dose: 10 mg Polyethylene Glycol (Miralax) 17 gm PO DAILY PRN PRN Reason: Constipation Last Admin: 11/25/17 12:27 Dose: 17 gm Senna/Docusate Sodium (Senna Plus) 1 tab PO BID PRN PRN Reason: Constipation Last Admin: 11/26/17 04:46 Dose: 1 tab - Exam General: Reports: Alert, Oriented, Cooperative, Mild Distress Lungs: Reports: Clear to Auscultation, Normal Respiratory Effort Cardiovascular: Reports: Regular Rate, Regular Rhythm, No Murmurs GI/Abdominal Exam: Soft, Non-Tender, No Organomegaly, No Distention Extremities: Other (Swelling left leg and around the left knee, incision is intact with no evidence of underlying infection or drainage) *Q Meaningful Use (DIS) - VTE *Q VTE Pharmacological Contraindications *Q: Active Hemorrhage
== END 2017-11-27 11:45 | disposition home or self-care (01) ==
LOC: JP.MS 11:16
PROVIDERS: ADMIT Hospitalist; ATTEND Hospitalist
DX: M25.562 Pain in left knee (principal); R22.42 Localized swelling, mass and lump, left lower limb; I25.10 Atherosclerotic heart disease of native coronary artery without angina pectoris; I25.2 Old myocardial infarction; I10 Essential (primary) hypertension; E78.00 Pure hypercholesterolemia, unspecified; Z79.82 Long term (current) use of aspirin; Z79.899 Other long term (current) drug therapy; Z96.652 Presence of left artificial knee joint
CPT/HCPCS: 36415; 80053; 85025; 93971; 97110; 97164; 97530; 97535; A9270; G0378; 99217; 99218; 99224

== ENCOUNTER 2019-10-25 06:39 | Day surgery (SDC) | payer BC, MEDICARE ==
[2019-10-25 06:58] VITALS: PULSE 61
[2019-10-25] MEDS ORDERED: Sodium Chloride 0.9% 1,000 ML IV SCH (07:00)
[2019-10-25] MEDS ORDERED: fentaNYL 100 MCG/2 ML SDV ONE (07:27)
[2019-10-25] MEDS ORDERED: Midazolam 1 MG/ML 2 ML SDV ONE (07:27)
[2019-10-25] MEDS ORDERED: Propofol 200 MG/20 ML SDV ONE (07:27)
[2019-10-25 08:56] VITALS: BP 124/92
--- NOTE | 2019-10-25 12:21 | OR ---
DATE OF PROCEDURE: 10/25/2019 SURGEON: Tiburcio Abraham MD PROCEDURE: Colonoscopy. FINDINGS: Approximately 1 cm polyp found in transverse colon, completely removed with hot snare wire device. COMPLICATION: None CONVERTIBLE TOP INSTALLER: None. PREOPERATIVE DIAGNOSIS: History of colon polyps. POSTOPERATIVE DIAGNOSIS: History of colon polyps. RISKS: Risks, benefits, alternatives, and limitations including, but not limited to infection, bleeding, and perforation were explained to the patient, who wished to proceed. PROCEDURE IN DETAIL: The patient was placed in left lateral decubitus position. Digital rectal exam was performed, which showed mild external hemorrhoids. Scope was introduced and advanced atraumatically to the ileocecal valve. A photo was taken of this. Scope was brought back through the ascending, transverse, descending colon, and retroflexed. The aforementioned polyp was identified and completely removed by surrounding with a wire. No abnormal bleeding was noted after removal. No abnormalities on retroflexion. The patient did have one diverticulum. The patient tolerated the procedure well. Tiburcio Abraham MD /[id number]
== END 2019-10-25 09:15 | disposition home or self-care (01) ==
LOC: JP.SDS 06:39
PROVIDERS: ATTEND Surgery
DX: Z12.11 Encounter for screening for malignant neoplasm of colon (principal); D12.3 Benign neoplasm of transverse colon; K64.4 Residual hemorrhoidal skin tags; I10 Essential (primary) hypertension; E78.5 Hyperlipidemia, unspecified; Z86.010 Personal history of colon polyps
CPT/HCPCS: 45385; J2250; J2704; J3010; J7030

== ENCOUNTER 2024-09-04 18:37 | Observation (INO) | payer MEDICARE ==
[2024-09-04] MEDS: Ondansetron 4 MG/2 ML SDV IVPUSH ONE (18:55)
[2024-09-04 18:56] LABS: BASOPHILS ABSOLUTE AUTO 0.03 K/uL (0.00-0.10); BASOPHILS PERCENT AUTO 0.4 % (0.1-1.3); EOSINOPHILS PERCENT AUTO 4.3 % (0.0-5.4); HEMATOCRIT 43.9 % (38.4-49.7); HEMOGLOBIN 14.7 g/dL (12.9-16.9); IMMATURE GRAN ABSOLUTE AUTO 0.03 K/uL (0.00-0.23); IMMATURE GRAN PERCENT AUTO 0.4 % (0.0-0.7); LYMPHOCYTES ABSOLUTE AUTO 1.44 K/uL (0.8-3.3); LYMPHOCYTES PERCENT AUTO 20.7 % (11.4-47.7); MEAN CORPUSCULAR HEMOGLOBIN 31.2 pg (31.6-35.5); MEAN CORPUSCULAR HGB CONC 33.5 g/dL (31.6-35.5); MEAN CORPUSCULAR VOLUME 93.2 fL (81.4-99.0); MONOCYTES ABSOLUTE AUTO 0.53 K/uL (0.20-0.90); MONOCYTES PERCENT AUTO 7.6 % (3.3-12.6); NEUTROPHILS ABSOLUTE AUTO 4.64 K/uL (1.0-7.6); NEUTROPHILS PERCENT AUTO 66.6 % (40.0-78.1); PLATELET COUNT,PLT 164 K/uL (130-375); RED BLOOD CELL COUNT 4.71 M/uL (4.14-5.76)
[2024-09-04] MEDS: Morphine 4 MG/ML Syringe IVPUSH ONE ×2 (18:56→19:17)
[2024-09-04] MEDS: Midazolam 1 MG/ML 2 ML SDV IVPUSH ONE ×2 (19:07→19:26)
[2024-09-04 19:11] LABS: ANION GAP 15.1 mmol/L (5.0-14.0); BLOOD UREA NITROGEN,BUN 19 mg/dL (7-18); CALCIUM 9.6 mg/dL (8.5-10.1); CARBON DIOXIDE,CO2 26 mmol/L (21-32); CHLORIDE,CL 102 mmol/L (100-108); CREATININE 1.2 mg/dL (0.8-1.3); ESTIMATED GFR 64 mL/min (>60); GLUCOSE RANDOM 142 mg/dL (74-106); POTASSIUM,K 4.1 mmol/L (3.6-5.2); SODIUM,NA 139 mmol/L (140-148)
[2024-09-04] MEDS ORDERED: Glycopyrrolate 0.2 MG/ML 5 ML MDV ONE (20:18)
[2024-09-04] MEDS ORDERED: Rocuronium 50 MG/5 ML Vial ONE ×2 (20:18→21:46)
[2024-09-04] MEDS ORDERED: Dexamethasone 4 MG/ML SDV ONE (20:18)
[2024-09-04] MEDS ORDERED: Neostigmine Methylsulfate 10 MG/10 ML MDV ONE (20:18)
[2024-09-04] MEDS ORDERED: Ondansetron 4 MG/2 ML SDV ONE (20:18)
[2024-09-04] MEDS ORDERED: fentaNYL 250 MCG/5 ML SDV ONE (20:18)
[2024-09-04] MEDS ORDERED: Succinylcholine 200 MG/10 ML MDV ONE (20:18)
[2024-09-04] MEDS ORDERED: Propofol 200 MG/20 ML SDV ONE (20:18)
[2024-09-04] MEDS ORDERED: Lactated Ringers 1,000 ML ONE (20:49)
[2024-09-04] MEDS ORDERED: ceFAZolin 1 GM Vial ONE (21:01)
[2024-09-04] MEDS ORDERED: Sodium Chloride 0.9% 10 ML ONE ×2 (21:01→21:47)
[2024-09-04] MEDS ORDERED: Ketorolac 30 MG/ML SDV ONE (21:13)
[2024-09-04] MEDS: Bupivacaine 0.5%/EPINEPHrine 1:200,000 50 ML MDV ONE (21:55)
[2024-09-04] MEDS: Indocyanine Green 25 MG SDV ONE (22:00)
[2024-09-04] MEDS ORDERED: fentaNYL 50 MCG/ML SDV IVPUSH PRN (23:35)
[2024-09-04] MEDS ORDERED: Ondansetron 4 MG/2 ML SDV IVPUSH PRN (23:41)
[2024-09-05] MEDS ORDERED: Promethazine 12.5 MG in Sodium Chloride 0.9% 50 ML IV PRN (00:15)
[2024-09-05] MEDS: Acetaminophen/HYDROcodone 325-5 MG Tab PO PRN (00:18)
[2024-09-05] MEDS ORDERED: Promethazine 25 MG in Sodium Chloride 0.9% 50 ML IV PRN (00:18)
[2024-09-05] MEDS ORDERED: Scopalamine 1mg/3day Transdermal Patch TOP PRN (00:19)
[2024-09-05] MEDS ORDERED: Dexamethasone 4 MG/ML SDV IVPUSH PRN (00:24)
[2024-09-05 05:38] VITALS: BP 126/62; PULSE 74
== END 2024-09-05 08:52 | disposition home or self-care (01) ==
LOC: JP.ED 18:37 → JP.SDS 19:46 → JP.MS 23:10
PROVIDERS: ADMIT Registered Nurse; ATTEND Surgery
DX: K40.31 Unilateral inguinal hernia, with obstruction, without gangrene, recurrent (principal); I10 Essential (primary) hypertension; E78.00 Pure hypercholesterolemia, unspecified; Z79.82 Long term (current) use of aspirin; Z79.899 Other long term (current) drug therapy
CPT/HCPCS: 36415; 49651; 51702; 80048; 83605; 85025; 93005; 96374; 96375; 99284; A9270; C1781; J0171; J0330; J0690; J1100; J1596; J1885; J2250; J2270; J2405; J2704; J2710; J2795; J3010; J3490; J7120

== ENCOUNTER 2024-09-06 04:11 | Inpatient (IN) | payer MEDICARE ==
[2024-09-06] MEDS: Sodium Chloride 0.9% 1,000 ML IV ONE (04:50)
[2024-09-06] MEDS: Ketorolac 15 MG/ML SDV ONE (04:55)
[2024-09-06] MEDS: Ketorolac 15 MG/ML SDV IVPUSH ONE (04:55)
[2024-09-06] MEDS: Ondansetron 4 MG/2 ML SDV IVPUSH ONE (05:01)
[2024-09-06] MEDS: Morphine 4 MG/ML Syringe IVPUSH ONE (07:42)
[2024-09-06] MEDS ORDERED: Succinylcholine 200 MG/10 ML MDV ONE (08:26)
[2024-09-06] MEDS ORDERED: fentaNYL 250 MCG/5 ML SDV ONE (08:26)
[2024-09-06] MEDS ORDERED: Ondansetron 4 MG/2 ML SDV ONE (08:26)
[2024-09-06] MEDS ORDERED: Dexamethasone 4 MG/ML SDV ONE (08:26)
[2024-09-06] MEDS ORDERED: Glycopyrrolate 0.2 MG/ML 5 ML MDV ONE (08:26)
[2024-09-06] MEDS ORDERED: Rocuronium 50 MG/5 ML Vial ONE ×2 (08:26→08:27)
[2024-09-06] MEDS ORDERED: Neostigmine Methylsulfate 10 MG/10 ML MDV ONE (08:26)
[2024-09-06] MEDS ORDERED: Propofol 200 MG/20 ML SDV ONE (08:26)
[2024-09-06] MEDS: Iopamidol 612 MG/ML 100 ML Bottle IV PRN (08:31)
[2024-09-06] MEDS: Sodium Chloride 0.9% 80 ML IV SCH (08:32)
[2024-09-06 09:37] LABS: A/G RATIO 1.1 (1.2-2.2); ALANINE AMINOTRANSFERASE,ALT 30 U/L (12-78); ALBUMIN 3.7 g/dL (3.4-5.0); ALKALINE PHOSPHATASE 90 U/L (46-116); ANION GAP 9.3 mmol/L (5.0-14.0); ASPARTATE AMNIOTRANSFERASE,AST 20 U/L (15-37); BILIRUBIN TOTAL 0.9 mg/dL (0.2-1.0); BLOOD UREA NITROGEN,BUN 22 mg/dL (7-18); CALCIUM 9.9 mg/dL (8.5-10.1); CARBON DIOXIDE,CO2 31 mmol/L (21-32); CHLORIDE,CL 100 mmol/L (100-108); CREATININE 1.5 mg/dL (0.8-1.3); EST CRCL DRUG DOSING (CG) 43.86 mL/min; ESTIMATED GFR 49 mL/min (>60); GLUCOSE RANDOM 169 mg/dL (74-106); POTASSIUM,K 3.8 mmol/L (3.6-5.2); PROTEIN TOTAL,TP 7.1 g/dL (6.4-8.2); SODIUM,NA 140 mmol/L (140-148)
[2024-09-06 09:38] LABS: APPEARANCE,URINE CLEAR (CLEAR); BILIRUBIN,URINE NEGATIVE (NEGATIVE); COLOR,URINE YELLOW (YELLOW); GLUCOSE,URINE NEGATIVE (NEGATIVE); KETONES,URINE NEGATIVE (NEGATIVE); OCCULT BLOOD,URINE NEGATIVE (NEGATIVE); PROTEIN,URINE NEGATIVE (NEGATIVE)
[2024-09-06 09:39] LABS: AMORPHOUS SEDIMENT,URINE MODERATE; BACTERIA,URINE RARE; EPITHELIAL CELLS,URINE RARE; LEUKOCYTE ESTERASE,URINE NEGATIVE (NEGATIVE); MUCUS,URINE FEW; NITRITE,URINE NEGATIVE (NEGATIVE); RBC,URINE NOT SEEN (0-5); UROBILINOGEN,URINE 0.2 EU/dL (0.2-1.0); WBC,URINE 0-5 (0-5)
[2024-09-06 09:40] LABS: BASOPHILS ABSOLUTE AUTO 0.03 K/uL (0.00-0.10); BASOPHILS PERCENT AUTO 0.2 % (0.1-1.3); EOSINOPHILS ABSOLUTE AUTO 0.03 K/uL (0.00-0.40); EOSINOPHILS PERCENT AUTO 0.2 % (0.0-5.4); HEMATOCRIT 44.3 % (38.4-49.7); HEMOGLOBIN 14.9 g/dL (12.9-16.9); IMMATURE GRAN PERCENT AUTO 0.3 % (0.0-0.7); LYMPHOCYTES ABSOLUTE AUTO 1.01 K/uL (0.8-3.3); LYMPHOCYTES PERCENT AUTO 6.7 % (11.4-47.7); MEAN CORPUSCULAR HEMOGLOBIN 31.2 pg (31.6-35.5); MEAN CORPUSCULAR HGB CONC 33.6 g/dL (31.6-35.5); MEAN CORPUSCULAR VOLUME 92.7 fL (81.4-99.0); MONOCYTES ABSOLUTE AUTO 1.25 K/uL (0.20-0.90); MONOCYTES PERCENT AUTO 8.4 % (3.3-12.6); NEUTROPHILS PERCENT AUTO 84.2 % (40.0-78.1); PLATELET COUNT,PLT 172 K/uL (130-375); RED BLOOD CELL COUNT 4.78 M/uL (4.14-5.76)
[2024-09-06 09:41] LABS: IMMATURE GRAN ABSOLUTE AUTO 0.05 K/uL (0.00-0.23)
[2024-09-06] MEDS ORDERED: Lactated Ringers 1,000 ML ONE ×2 (09:53→10:16)
[2024-09-06] MEDS ORDERED: ceFAZolin 1 GM Vial ONE (09:59)
[2024-09-06] MEDS: metroNIDAZOLE/Normal Saline 500 MG in Premix Bag 1 BAG IV ONE (10:00)
[2024-09-06] MEDS: Ropivacaine 38 ML, dexAMETHasone 8 MG, EPINEPHrine 0.4 MG, Sodium Chloride 0.9% 39.6 ML NERVRT SCH (10:01)
[2024-09-06] MEDS: Bupivacaine 0.5%/EPINEPHrine 1:200,000 50 ML MDV ONE (10:06)
[2024-09-06] MEDS ORDERED: fentaNYL 100 MCG/2 ML SDV ONE (10:08)
[2024-09-06] MEDS ORDERED: Indocyanine Green 25 MG SDV ONE (10:13)
[2024-09-06] MEDS ORDERED: diphenhydrAMINE 50 MG/ML SDV IVPUSH PRN (10:56)
[2024-09-06] MEDS ORDERED: Benzocaine/Cetylpyridinium/Menthol Lozenge MUCMEM PRN (10:56)
[2024-09-06] MEDS ORDERED: hydrOXYzine HCL 100 MG/2 ML SDV IM PRN (10:56)
[2024-09-06] MEDS ORDERED: fentaNYL 100 MCG/2 ML SDV IVPUSH PRN (10:56)
[2024-09-06] MEDS ORDERED: fentaNYL 50 MCG/ML SDV IVPUSH PRN ×2 (11:02→11:03)
[2024-09-06] MEDS: Sodium Chloride 0.9% 1,000 ML IV SCH (15:19)
[2024-09-06] MEDS: Ondansetron 4 MG/2 ML SDV ONE (15:28)
[2024-09-06] MEDS: Morphine 4 MG/ML Syringe ONE (15:35)
[2024-09-06] MEDS: Acetaminophen/oxyCODONE 325-5 MG Tab PO PRN (16:55)
[2024-09-07 06:06] LABS: HEMATOCRIT 39.6 % (38.4-49.7); HEMOGLOBIN 12.8 g/dL (12.9-16.9); MEAN CORPUSCULAR HEMOGLOBIN 30.8 pg (31.6-35.5); MEAN CORPUSCULAR HGB CONC 32.3 g/dL (31.6-35.5); MEAN CORPUSCULAR VOLUME 95.2 fL (81.4-99.0); RED BLOOD CELL COUNT 4.16 M/uL (4.14-5.76); WHITE BLOOD CELL COUNT,WBC 12.3 K/uL (3.2-11.0)
[2024-09-07] MEDS ORDERED: Acetaminophen 325 MG Tab PO PRN (06:20)
[2024-09-07 06:27] LABS: ANION GAP 6.3 mmol/L (5.0-14.0); CREATININE 1.2 mg/dL (0.8-1.3); EST CRCL DRUG DOSING (CG) 54.83 mL/min; POTASSIUM,K 4.7 mmol/L (3.6-5.2)
[2024-09-07] MEDS: Enoxaparin 40 MG/0.4 ML Syringe SUBCUT SCH (09:07)
[2024-09-07] MEDS: Metoprolol Succinate 50 MG Tab.ER PO SCH (09:07)
[2024-09-07] MEDS: Lactulose Soln 10 GM/15 ML 15 ML UD Cup PO SCH (17:39)
[2024-09-08] MEDS ORDERED: Acetaminophen Soln 650 MG/20.3 ML UD Cup PO PRN (08:04)
[2024-09-08] MEDS: hydrALAZINE 20 MG/ML SDV IVPUSH PRN (08:49)
[2024-09-08] MEDS: Saliva Substitute Oral Spray 120 ML Bottle MUCMEM PRN (20:18)
[2024-09-09] MEDS: Magnesium Hydroxide 400 MG/5 ML Susp 30 ML Cup PO PRN (08:34)
[2024-09-09] MEDS ORDERED: Loratadine 10 MG Tab PO PRN (09:00)
[2024-09-09] MEDS: Lactobacillus Rhamnosus GG (Probiotic) Cap PO SCH (09:56)
[2024-09-09] MEDS: Amoxicillin/Clavulanate K 875-125 MG Tab PO SCH (10:02)
[2024-09-10 07:25] LABS: BASOPHILS ABSOLUTE AUTO 0.03 K/uL (0.00-0.10); BASOPHILS PERCENT AUTO 0.4 % (0.1-1.3); EOSINOPHILS ABSOLUTE AUTO 0.69 K/uL (0.00-0.40); EOSINOPHILS PERCENT AUTO 9.8 % (0.0-5.4); HEMATOCRIT 37.3 % (38.4-49.7); HEMOGLOBIN 12.6 g/dL (12.9-16.9); IMMATURE GRAN ABSOLUTE AUTO 0.05 K/uL (0.00-0.23); IMMATURE GRAN PERCENT AUTO 0.7 % (0.0-0.7); LYMPHOCYTES ABSOLUTE AUTO 1.02 K/uL (0.8-3.3); LYMPHOCYTES PERCENT AUTO 14.5 % (11.4-47.7); MEAN CORPUSCULAR HEMOGLOBIN 31.6 pg (31.6-35.5); MEAN CORPUSCULAR HGB CONC 33.8 g/dL (31.6-35.5); MEAN CORPUSCULAR VOLUME 93.5 fL (81.4-99.0); MONOCYTES ABSOLUTE AUTO 0.66 K/uL (0.20-0.90); MONOCYTES PERCENT AUTO 9.4 % (3.3-12.6); NEUTROPHILS PERCENT AUTO 65.2 % (40.0-78.1); PLATELET COUNT,PLT 153 K/uL (130-375); RED BLOOD CELL COUNT 3.99 M/uL (4.14-5.76); WHITE BLOOD CELL COUNT,WBC 7.1 K/uL (3.2-11.0)
[2024-09-10 07:48] LABS: A/G RATIO 0.8 (1.2-2.2); ALANINE AMINOTRANSFERASE,ALT 24 U/L (12-78); ALBUMIN 2.2 g/dL (3.4-5.0); ALKALINE PHOSPHATASE 64 U/L (46-116); ASPARTATE AMNIOTRANSFERASE,AST 18 U/L (15-37); BLOOD UREA NITROGEN,BUN 11 mg/dL (7-18); CALCIUM 8.3 mg/dL (8.5-10.1); CARBON DIOXIDE,CO2 26 mmol/L (21-32); CHLORIDE,CL 108 mmol/L (100-108); EST CRCL DRUG DOSING (CG) 65.79 mL/min; ESTIMATED GFR 79 mL/min (>60); GLUCOSE RANDOM 108 mg/dL (74-106); POTASSIUM,K 3.7 mmol/L (3.6-5.2); PROTEIN TOTAL,TP 5.1 g/dL (6.4-8.2); SODIUM,NA 140 mmol/L (140-148)
[2024-09-10 08:31] VITALS: BP 109/75
[2024-09-10 09:35] VITALS: PULSE 88
== END 2024-09-10 09:00 | disposition home or self-care (01) | DRG 331 ==
LOC: JP.ED 04:11 → JP.SDS 07:54 → JP.MS 10:56
PROVIDERS: ADMIT Surgery; ATTEND Surgery
PROC: 0DBB4ZZ Excision of Ileum, Percutaneous Endoscopic Approach (ICD-10-PCS; 2024-09-06)
PROC: 0DQV4ZZ Repair Mesentery, Percutaneous Endoscopic Approach (ICD-10-PCS; 2024-09-06)
PROC: 0DBV4ZZ Excision of Mesentery, Percutaneous Endoscopic Approach (ICD-10-PCS; 2024-09-06)
PROC: 0DB84ZZ Excision of Small Intestine, Percutaneous Endoscopic Approach (ICD-10-PCS; principal; 2024-09-06 10:10)
DX: K40.30 Unilateral inguinal hernia, with obstruction, without gangrene, not specified as recurrent (principal); Z87.19 Personal history of other diseases of the digestive system; E78.00 Pure hypercholesterolemia, unspecified; I10 Essential (primary) hypertension; H54.7 Unspecified visual loss; M19.90 Unspecified osteoarthritis, unspecified site; F15.90 Other stimulant use, unspecified, uncomplicated; Z95.5 Presence of coronary angioplasty implant and graft; Z98.890 Other specified postprocedural states; Z79.82 Long term (current) use of aspirin; Z79.1 Long term (current) use of non-steroidal anti-inflammatories (NSAID); Z87.891 Personal history of nicotine dependence; Z79.02 Long term (current) use of antithrombotics/antiplatelets; I25.2 Old myocardial infarction
CPT/HCPCS: 36415; 71045 ×2; 74177; 80053; 81001; 85025; J0171; J0330; J0690; J1100 ×2; J1596; J1836; J1885; J2270; J2405; J2704; J2710; J2795; J3010 ×2; J3490; J7030; J7120 ×2; Q9967; 43752; 74019; 74019-26; 80048; 85027; 96361; 96365; 96375; 99231; 99233; 99285; 99285-25; A9270-GY; J0360; J1650

== ENCOUNTER 2024-11-23 06:26 | Day surgery (SDC) | payer MEDICARE ==
[2024-11-23] MEDS ORDERED: fentaNYL 100 MCG/2 ML SDV ONE (07:21)
[2024-11-23] MEDS ORDERED: Propofol 200 MG/20 ML SDV ONE (07:21)
[2024-11-23] MEDS ORDERED: Midazolam 1 MG/ML 2 ML SDV ONE (07:21)
[2024-11-23] MEDS: Lactated Ringers 1,000 ML IV SCH (07:32)
[2024-11-23 09:15] VITALS: BP 130/73; PULSE 58
== END 2024-11-23 09:40 | disposition home or self-care (01) ==
LOC: JP.SDS 06:26
PROVIDERS: ATTEND Surgery
DX: Z12.11 Encounter for screening for malignant neoplasm of colon (principal); K51.40 Inflammatory polyps of colon without complications; K57.30 Diverticulosis of large intestine without perforation or abscess without bleeding; K64.8 Other hemorrhoids
CPT/HCPCS: 00811; 45380; 45398; 88305; J2250; J2704; J3010; J7120